=== PATIENT | female | born 1950 | race Hispanic/Latino ===

== ENCOUNTER 2018-01-24 06:05 | Inpatient (IN) | payer MEDICARE ==
[2018-01-21 09:40] LABS: BASOPHILS % 0.5 % (0.0-1.0); EOSINOPHILS # (AUTO) 0.5 (0.0-0.4); EOSINOPHILS % 8.2 % (0.0-6.0); HEMATOCRIT 40.4 % (34.2-44.1); HEMOGLOBIN 13.1 g/dL (12.0-16.0); LYMPHOCYTES # (AUTO) 1.8 (1.0-3.2); LYMPHOCYTES % 30.6 % (18.0-39.1); MEAN CORPUSCULAR HGB CONC 32.4 g/dL (31-35); MEAN CORPUSCULAR VOLUME 92.7 fL (81-99); MONOCYTES # (AUTO) 0.4 (0.2-0.8); MONOCYTES % 6.3 % (4.4-11.3); NEUTROPHILS # (AUTO) 3.2 (2.1-6.9); NEUTROPHILS % 54.2 % (38.7-80.0); PLATELET COUNT 192 x10e3/uL (140-360); RED BLOOD COUNT 4.36 x10e6/uL (3.6-5.1); RED CELL DISTRIBUTION WIDTH 13.2 % (11.7-14.4)
[2018-01-21 10:05] LABS: ANION GAP 14.1 mmol/L (8-16); BLOOD UREA NITROGEN 13 mg/dL (7-26); BUN/CREATININE RATIO 15 (6-25); CALCIUM 10.1 mg/dL (8.4-10.2); CARBON DIOXIDE 26 mmol/L (22-29); CHLORIDE 105 mmol/L (98-107); CREATININE, SERUM 0.89 mg/dL (0.57-1.11); EST GLOMERULAR FILTRATION RATE > 60 ML/MIN (60-); GLUCOSE 106 mg/dL (74-118); POTASSIUM 4.1 mmol/L (3.5-5.1); SODIUM 141 mmol/L (136-145)
--- NOTE | 2018-01-21 10:29 | Diagnostic Imaging Report ---
PROCEDURE: Frontal and lateral views of the chest. COMPARISON: Chest radiograph 10/05/12. INDICATIONS: PRE-OPERATIVE CHEST X-RAY FOR RIGHT KNEE SURGERY FINDINGS: Lines/tubes: None. Lungs: Moderate lung volumes. There is no evidence of pneumonia or pulmonary edema. Pleura: There is no pleural effusion or pneumothorax. Heart and mediastinum: The cardiomediastinal silhouette is unremarkable. Atherosclerotic calcifications of the aortic arch. Bones: No acute bony abnormality. IMPRESSION: No acute cardiopulmonary disease. Dictated by: ALVIN SANTOYO M.D. on 01/21/2018 at 10:36 Electronically approved by: ALVIN SANTOYO M.D. on 01/21/2018 at 10:36
[~2018-01-24] VITALS: Ht 154.9 cm; Wt 82.6 kg
[~2018-01-24 06:05] MED LIST: AMLODIPINE BESYL5 MG PO; CALCIUM 500 +1 EAC2 PO; EXFORGE HCT 5-1 EACH PO; FENOFIBRATE145 MG PO; HYDROCHLOROTHIA25 MG PO; LOSARTAN POTAS100 MG PO; LOSARTAN-HCTZ1 EAC1 PO; SIMVASTATIN40 MG PO; VITAMIN D35000 UNIT PO
[2018-01-24] MEDS ORDERED: ROPIVACAINE 246.25 MG, EPINEPHRINE HCL 1:1000 0.5 MG, CLONIDINE HCL 0.08 MG, KETOROLAC ... IV ONE ×5 (06:30)
[2018-01-24] MEDS ORDERED: MUPIROCIN 2% OINT 22 GM TUBE ONE (06:51)
[2018-01-24] MEDS ORDERED: TRANEXAMIC ACID 1,000 MG/10 ML ML ONE (06:52)
[2018-01-24] MEDS ORDERED: BACITRACIN 50,000 UNIT VIAL ONE (06:52)
[2018-01-24] MEDS ORDERED: DEXAMETHASONE SOD PHOS 10 MG/1 ML VIAL ONE (07:09)
[2018-01-24] MEDS ORDERED: CELECOXIB 200 MG CAP ONE (07:09)
[2018-01-24] MEDS ORDERED: GABAPENTIN 300 MG CAP ONE (07:10)
[2018-01-24] MEDS ORDERED: CEFAZOLIN SOD 2 GM/D5W 50ML 50 ML IV ONE (07:10)
[2018-01-24] MEDS: SODIUM CHLORIDE 0.9% 1000ML 1,000 ML IV SCH ×2 (09:50→17:57)
[2018-01-24] MEDS ORDERED: DOCUSATE SODIUM 100 MG CAP PO PRN (10:00)
[2018-01-24] MEDS ORDERED: ZOLPIDEM TARTRATE 5 MG TAB PO PRN (10:00)
[2018-01-24] MEDS ORDERED: PROMETHAZINE HCL (IM) 25 MG/ML VIAL INJ PRN (10:00)
[2018-01-24] MEDS ORDERED: ACETAMINOPHEN 650 MG SUPP PR PRN (10:00)
[2018-01-24] MEDS ORDERED: DIPHENHYDRAMINE HCL INJ 50 MG/ML VIAL IM/IV PRN (10:00)
[2018-01-24] MEDS ORDERED: ONDANSETRON HCL INJ 2 MG/ML VIAL IV PRN (10:00)
[2018-01-24] MEDS ORDERED: HYDROCODONE/APAP 7.5MG-325MG 1 EA TAB PO PRN (10:00)
[2018-01-24] MEDS ORDERED: KETOROLAC TROMETHAMINE 30 MG/ML VIAL IV PRN (10:00)
[2018-01-24] MEDS ORDERED: HYDROCODONE/APAP 5MG-325MG TAB PO PRN (10:00)
--- NOTE | 2018-01-24 11:29 | Diagnostic Imaging Report ---
PROCEDURE: X-RAY RIGHT KNEE, ONE OR TWO VIEWS COMPARISON: None. INDICATIONS:POST OPERATIVE RIGHT KNEE SURGERY FINDINGS: See conclusion. CONCLUSION: Status post total right knee replacement with surrounding soft tissue swelling, air and omeag consistent with recent surgery. No acute fractures. Dictated by: Aron Pinto M.D. on 01/24/2018 at 11:35 Electronically approved by: Aron Pinto M.D. on 01/24/2018 at 11:35
--- NOTE | 2018-01-24 11:38 | Operative Report ---
DATE OF PROCEDURE: January 24, 2018 CHIEF BUSINESS DEVELOPMENT OFFICER: Kris Simmons PA-C The patient was brought to the operating room for induction of anesthesia. Throughout this case, my PA's assistance was necessary for retraction of soft tissue and positioning of the extremity. This allows for efficient and technically successful execution of the operation and is considered medically necessary. PREOPERATIVE DIAGNOSIS: Osteoarthritis, right knee. POSTOPERATIVE DIAGNOSIS: Osteoarthritis, right knee. PROCEDURE: Right total knee arthroplasty. INDICATIONS: The patient is a 68-year-old woman with longstanding osteoarthritis of her right knee. She has failed extensive conservative management. She complains of disabling symptoms and would like to proceed with a right total knee replacement. The risks and benefits of the procedure have been discussed. She states she understands and wishes to proceed. DESCRIPTION OF PROCEDURE: The patient was brought to the operating room and placed under general anesthetic. She received a regional block, prophylactic antibiotics, and tranexamic acid in the holding area. Her right lower extremity was prepped and draped in a sterile manner. A preoperative time out was performed. The extremity was exsanguinated and the proximal tourniquet was inflated to 300 mmHg. An anterior approach with a medial parapatellar arthrotomy was performed. Soft tissue releases were performed to bring the knee up into flexion with the patella everted. The cruciate ligaments were sacrificed. The meniscal remnants and marginal osteophytes were removed. A Montalvo and Nephew Cassie II posterior-stabilized knee system was used throughout the case. An extramedullary cutting guide was used to resect the proximal tibia. The tibial baseplate was noted to be a size #4. The central fin punch was impacted and attention was directed towards the distal femur. An intramedullary cutting guide was used to resect the distal femur in 6 degrees of valgus and rotation referencing off of a combination of landmarks including Fuad's line, the epicondylar axis, and the posterior condyles. The femoral component was a size #5. The anterior and posterior cuts were made. Trial reductions were performed. A 9-mm ultra-congruent tibial insert provided appropriate soft tissue balancing in both flexion and extension. The patella was resurfaced with a 29 mm x 7.5 mm patellar button. The thickness was checked before and after and was right around 22 mm. Patellar tracking was noted to be concentric. The trial implants were then all removed. A 100 mL premixed pericapsular injection was placed into the surrounding soft tissue. The knee was thoroughly irrigated with the shower-tip pulsatile lavage. The components were cemented into place using a single mix of PALACOS cement preloaded with antibiotics. Care was taken to remove extravasated cement. The wound was further irrigated while the cement cured. The arthrotomy was then closed with interrupted #1 Ethibond. The knee was put through flexion and extension to ensure a secure closure. The skin was closed with subcuticular Vicryl and omega. A sterile Aquacel bandage was applied. The patient was extubated and transported to the recovery room in stable condition. Blood loss was minimal. All needle and sponge counts were correct. Job#: [id number] MAE
[2018-01-24] MEDS: ACETAMINOPHEN 1000 MG/100 ML IV SCH ×2 (12:00→17:40)
[2018-01-24] MEDS ORDERED: CEFAZOLIN SOD 1 GM/D5W 50ML 50 ML IV SCH (14:00)
[2018-01-24 15:10] VITALS: BP 131/60
[2018-01-24 15:11] VITALS: BP 131/60
[2018-01-24] MEDS ORDERED: ACETAMINOPHEN 1000 MG/100 ML IV ONE (15:29)
[2018-01-24] MEDS ORDERED: PROPOFOL IV EMULSION 10 MG/ML 20 ML VIAL ONE (15:29)
[2018-01-24] MEDS ORDERED: SEVOFLURANE INHAL SOLN 250 ML PEN BTL ONE (15:29)
[2018-01-24] MEDS ORDERED: LIDOCAINE HCL 2% LOCAL INJ 5 ML SDV VIAL INJ ONE (15:29)
[2018-01-24] MEDS ORDERED: DEXAMETHASONE SOD PHOS INJ 4 MG/ML VIAL ONE (15:29)
[2018-01-24] MEDS ORDERED: ONDANSETRON HCL INJ 2 MG/ML VIAL ONE (15:29)
[2018-01-24] MEDS ORDERED: CELECOXIB 100 MG CAP PO SCH (17:00)
[2018-01-24 17:16] VITALS: BP 121/57
[2018-01-24] MEDS: CEFAZOLIN SOD 1 GM VIAL IV SCH (17:30)
[2018-01-24] MEDS: ASPIRIN 325 MG TAB PO SCH (17:30)
[2018-01-24] MEDS: CELECOXIB 200 MG CAP PO SCH (17:30)
[2018-01-24] MEDS ORDERED: LIDOCAINE 2% /EPINEPHRINE 20 ML SDV INJ ONE (19:20)
[2018-01-24] MEDS ORDERED: ROPIVACAINE 0.5% 5 MG/ML 30 ML SDV ONE (19:20)
[2018-01-24] MEDS ORDERED: FENTANYL CITRATE/PF 100MCG/2 ML INJ ONE (19:52)
[2018-01-24] MEDS ORDERED: MIDAZOLAM HCL 2 MG/2 ML VIAL ONE (19:52)
[2018-01-24 20:00] VITALS: BP 115/56
--- NOTE | 2018-01-24 22:44 | Consultation ---
DATE OF CONSULTATION: January 24, 2018 REASON FOR CONSULTATION: Postoperative medical management. HISTORY OF PRESENT ILLNESS: A 68-year-old female patient with history of osteoarthritis of the right knee who is presently status post total knee arthroplasty with good pain control postoperatively. PAST MEDICAL HISTORY: Significant for hypertension, osteoarthritis, vitamin D deficiency, hypercholesterolemia. PAST SURGICAL HISTORY: Previous cholecystectomy, hernia repair with mesh, lumpectomy of the right breast. MEDICATIONS: The patient takes amlodipine 5 mg p.o. daily, meloxicam 15 mg p.o. daily, vitamin D 5000 international units daily, simvastatin 20 mg p.o. daily, fenofibrate 48 mg p.o. daily, losartan hydrochlorothiazide 100 per 25 mg p.o. daily. ALLERGIES: NO KNOWN DRUG ALLERGIES. SOCIAL HISTORY: The patient drinks 1 to 2 cups of caffeinated beverages a day. FAMILY HISTORY: Noncontributory. REVIEW OF SYSTEMS CONSTITUTIONAL: No fever or chills. HEENT: No increased jugular venous pressure. CARDIORESPIRATORY: No chest pain or shortness of breath. GASTROINTESTINAL: No nausea or vomiting. PHYSICAL EXAMINATION VITALS: At the time of this consultation, the patient's temperature is 96.0, pulse 82, respirations 16, blood pressure 121/57. GENERAL: The patient is alert, in no acute distress. SKIN: Warm and dry. NECK: No JVD. No bruit. CHEST: Heart is regular. Lungs clear. ABDOMEN: Obese, soft, nontender. EXTREMITIES: Right knee is stressed with ice packs. SCDs were in place. Good capillary filling. ASSESSMENT 1. Osteoarthritis of the knee, status post right total knee arthroplasty. 2. Hypertension. 3. Hypercholesterolemia. 4. Obesity. PLAN AND RECOMMENDATIONS: The patient will continue with her management of hypertension and hyperlipidemia as prior to admission. Continue with postoperative care, DVT prophylaxis, pain management and ambulation with PT. Job#: [id number] KYLE
[2018-01-24 22:49] VITALS: BP 115/56
[2018-01-25] VITALS: BP 121/57
[2018-01-25] MEDS: ACETAMINOPHEN 1000 MG/100 ML IV SCH ×3 (00:02→05:41)
[2018-01-25] MEDS: CEFAZOLIN SOD 1 GM VIAL IV SCH ×2 (00:02→09:53)
[2018-01-25] MEDS: SODIUM CHLORIDE 0.9% 1000ML 1,000 ML IV SCH (05:04)
[2018-01-25 05:50] LABS: HEMATOCRIT 32.3 % (34.2-44.1); HEMOGLOBIN 10.5 g/dL (12.0-16.0)
[2018-01-25 06:00] VITALS: BP 125/60
[2018-01-25 08:00] VITALS: BP 137/64
[2018-01-25] MEDS: ASPIRIN 325 MG TAB PO SCH (09:53)
[2018-01-25] MEDS: CELECOXIB 200 MG CAP PO SCH ×2 (09:53→15:30)
[2018-01-25] MEDS ORDERED: ACETAMINOPHEN 1000 MG/100 ML IV PRN (10:00)
[2018-01-25] MEDS ORDERED: ASPIRIN325 MG PO (12:19)
[2018-01-25 13:50] VITALS: BP 185/78
== END 2018-01-25 15:31 | disposition home health service (06) | DRG 470 ==
LOC: OR 06:05 → PACU V 09:54 → MED/SURG 14:09
PROVIDERS: ADMIT Specialist; ATTEND Specialist
PROC: 0SRC0J9 Replacement of Right Knee Joint with Synthetic Substitute, Cemented, Open Approach (ICD-10-PCS; principal; 2018-01-24 08:15)
DX: M17.0 Bilateral primary osteoarthritis of knee (principal); I10 Essential (primary) hypertension; E78.00 Pure hypercholesterolemia, unspecified; E55.9 Vitamin D deficiency, unspecified; E66.9 Obesity, unspecified; Z68.34 Body mass index [BMI] 34.0-34.9, adult
CPT/HCPCS: 36415; 71046; 80048; 85014; 85018; 85025; 86850; 86900; 86920; 93005; C1713; J0171; J0690; J1100; J1885; J2001; J2250; J2405; J2795; J7030

== ENCOUNTER 2018-09-26 07:27 | Observation (INO) | payer MEDICARE ==
[2018-09-23 10:56] LABS: BASOPHILS % 0.7 % (0.0-1.0); EOSINOPHILS # (AUTO) 0.4 (0.0-0.4); EOSINOPHILS % 6.7 % (0.0-6.0); HEMATOCRIT 39.6 % (34.2-44.1); HEMOGLOBIN 12.9 g/dL (12.0-16.0); LYMPHOCYTES # (AUTO) 1.5 (1.0-3.2); LYMPHOCYTES % 27.2 % (18.0-39.1); MEAN CORPUSCULAR HEMOGLOBIN 29.5 pg (28-32); MEAN CORPUSCULAR HGB CONC 32.6 g/dL (31-35); MEAN CORPUSCULAR VOLUME 90.4 fL (81-99); MONOCYTES # (AUTO) 0.3 (0.2-0.8); MONOCYTES % 6.3 % (4.4-11.3); NEUTROPHILS # (AUTO) 3.2 (2.1-6.9); NEUTROPHILS % 58.7 % (38.7-80.0); PLATELET COUNT 182 x10e3/uL (140-360); RED BLOOD COUNT 4.38 x10e6/uL (3.6-5.1); RED CELL DISTRIBUTION WIDTH 13.6 % (11.7-14.4)
--- NOTE | 2018-09-23 13:22 | Diagnostic Imaging Report ---
EXAM: CHEST 2 VIEWS, PA and lateral DATE: 09/23/2018 Time stamp on exam: 10:38 AM INDICATION: Preoperative COMPARISON: None FINDINGS: LINES/TUBES: None LUNGS: No consolidations or edema. PLEURA: No effusions or pneumothorax. HEART AND MEDIASTINUM: Normal size and contour. Calcification within the aorta. BONES AND SOFT TISSUES: No acute findings. IMPRESSION: No acute thoracic abnormality. Signed by: Dr. Sameer Pennington DO on 09/23/2018 1:18 PM
[~2018-09-26 07:27] MED LIST changes: +ASPIRIN325 MG PO; +BACITRACIN 50,000 UNIT VIAL ONE; +IRBESARTAN-HCT1 EAC1 PO; +ROPIVACAINE 246.25 MG, EPINEPHRINE HCL 1:1000 1ML 0.5 MG, CLONIDINE HCL 0.08 MG, KETORO... INJ ONE; +SODIUM CHLORIDE 0.9% 500ML 500 ML ONE; +TRANEXAMIC ACID 1,000 MG/10 ML ML ONE
[2018-09-26] MEDS ORDERED: CELECOXIB 200 MG CAP ONE (07:52)
[2018-09-26] MEDS ORDERED: DEXAMETHASONE SOD PHOS 10 MG/1 ML VIAL ONE (07:52)
[2018-09-26] MEDS ORDERED: GABAPENTIN 300 MG CAP ONE (07:52)
[2018-09-26] MEDS ORDERED: CEFAZOLIN SOD 2 GM/D5W 50ML 50 ML IV ONE (07:52)
[2018-09-26] MEDS ORDERED: VANCOMYCIN HCL 1,000 MG ONE (08:07)
[2018-09-26] MEDS ORDERED: PROMETHAZINE HCL (IM) 25 MG/ML VIAL INJ PRN (10:45)
[2018-09-26] MEDS ORDERED: KETOROLAC TROMETHAMINE 30 MG/ML VIAL IV PRN (10:45)
[2018-09-26] MEDS ORDERED: DIPHENHYDRAMINE HCL INJ 50 MG/ML VIAL IM/IV PRN (10:45)
[2018-09-26] MEDS ORDERED: ONDANSETRON HCL INJ 2MG/ML 2ML 2 MG/ML VIAL IV PRN (10:45)
[2018-09-26] MEDS ORDERED: DOCUSATE SODIUM 100 MG CAP PO PRN (10:45)
[2018-09-26] MEDS ORDERED: ACETAMINOPHEN 650 MG SUPP PR PRN (10:45)
[2018-09-26] MEDS ORDERED: HYDROCODONE/APAP 7.5MG-325MG 1 EA TAB PO PRN (10:45)
[2018-09-26] MEDS ORDERED: ZOLPIDEM TARTRATE 5 MG TAB PO PRN (10:45)
[2018-09-26] MEDS ORDERED: HYDROCODONE/APAP 5MG-325MG TAB PO PRN (10:45)
[2018-09-26] MEDS ORDERED: HYDROMORPHONE 2MG/ML 2 MG/ML ML ONE (11:08)
--- NOTE | 2018-09-26 11:45 | NUR ---
RECEIVED PATIENT FROM RECOVERY. PATIENT A/O X3, EVEN RESPIRATIONS UNLABORED ON 2LNC. PATIENT HAD A LEFT TOTAL KNEE. LEFT KNEE DRESSING CLEAN, DRY, AND INTACT. ICE PACK IN PLACE. MCKEE DRAINING CLEAR YELLOW URINE. RIGHT WRIST 20 GAUGE IV WITH NS @ 100 CC/HR. PATIENT AMBULATORY WITH ASSISTANCE. VITALS STABLE, NO SIGNS OF DISTRESS. CALL LIGHT IN REACH, BED LOW, WHEELS LOCKED, SIDE RAILS X2. WILL CONTINUE TO MONITOR PATIENT.
[2018-09-26] MEDS ORDERED: ACETAMINOPHEN 1000 MG/100 ML IV SCH (12:00)
--- NOTE | 2018-09-26 12:06 | Diagnostic Imaging Report ---
EXAM: KNEE LEFT 1-2 VIEWS DATE: 09/26/2018 10:37 AM INDICATION:Postop knee COMPARISON: None FINDINGS: 2 views of the left knee shows arthroplasty hardware. Hardware appears intact. There are skin omega anterior to the knee and there is air in the underlying soft tissue and intra-articular space compatible with recent surgery. No other acute bony abnormality. IMPRESSION: Postoperative left knee with intact appearing arthroplasty hardware. Signed by: Dr. Andrey Schmidt M.D. on 09/26/2018 12:03 PM
[2018-09-26] MEDS: ACETAMINOPHEN 1000 MG/100 ML 100 ML IV SCH ×2 (12:41→19:22)
[2018-09-26] MEDS: SODIUM CHLORIDE 0.9% 1000ML 1,000 ML IV SCH ×2 (12:41→20:37)
[2018-09-26 12:54] VITALS: BP 132/61
[2018-09-26 13:17] VITALS: BP 132/61
[2018-09-26 13:48] VITALS: BP 132/61
[2018-09-26] MEDS: CEFAZOLIN SOD 1 GM/NS 50ML 50 ML IV SCH ×2 (14:34→22:06)
[2018-09-26 15:42] VITALS: BP 128/65
[2018-09-26] MEDS: ASPIRIN 325 MG TAB PO SCH (17:17)
[2018-09-26] MEDS: CELECOXIB 100 MG CAP PO SCH (17:17)
[2018-09-26] MEDS ORDERED: DEXAMETHASONE SOD PHOS INJ 4 MG/ML VIAL ONE (17:52)
[2018-09-26] MEDS ORDERED: ONDANSETRON HCL INJ 2MG/ML 2ML 2 MG/ML VIAL ONE (17:52)
[2018-09-26] MEDS ORDERED: ACETAMINOPHEN 1000 MG/100 ML IV ONE (17:52)
[2018-09-26] MEDS ORDERED: SEVOFLURANE INHAL SOLN 250 ML PEN BTL ONE (17:52)
[2018-09-26] MEDS ORDERED: LIDOCAINE HCL 2% LOCAL INJ 5 ML SDV VIAL INJ ONE (17:52)
[2018-09-26] MEDS ORDERED: PROPOFOL IV EMULSION 10 MG/ML 20 ML VIAL ONE (17:52)
[2018-09-26] MEDS ORDERED: BUPIVACAINE 0.25% 30ML SDV INJ ONE (19:18)
[2018-09-26] MEDS ORDERED: EPINEPHRINE HCL 1:1000 1ML 1 MG/ML AMP ONE (19:18)
[2018-09-26] MEDS ORDERED: FENTANYL CITRATE/PF 100MCG/2 ML INJ ONE ×2 (19:47→19:49)
[2018-09-26] MEDS ORDERED: MIDAZOLAM HCL 2 MG/2 ML VIAL ONE (19:47)
[2018-09-26 20:00] VITALS: BP 133/63
--- NOTE | 2018-09-26 20:05 | Operative Report ---
DATE OF PROCEDURE: 09/26/2018 SURGEON: Joey Arango MD GREY STOCK RECORDER: Tesfaye Noel. PREOPERATIVE DIAGNOSIS: Osteoarthritis, left knee. POSTOPERATIVE DIAGNOSIS: Osteoarthritis, left knee. PROCEDURE: Left total knee arthroplasty. INDICATIONS: The patient is a 68-year-old lady, who is status post right total knee replacement about 6 months ago. She would now like to have her left knee replaced. The risks and benefits of the procedure have been discussed. She states she understands and wishes to proceed. DESCRIPTION OF PROCEDURE: The patient was brought to the operating room and placed under general anesthetic. She received a regional block, prophylactic antibiotics, and tranexamic acid in the holding area. Her left lower extremity was prepped and draped in a sterile manner. A preoperative time-out was performed. The extremity was exsanguinated and a proximal tourniquet was inflated to 300 mmHg. An anterior approach with a medial parapatellar arthrotomy was made to the left knee. Clear synovial fluid was removed from the joint. Soft tissue releases were performed to bring the knee up into flexion with the patella everted. The remnant of the anterior cruciate ligament was sacrificed. Meniscal remnants and marginal osteophytes were removed. An extramedullary cutting guide was used to resect the proximal tibia. The tibial base plate was a size #4. The central fin punch was impacted and attention was directed towards the distal femur. Throughout the case, a Marro.ws and DeNA knee system was used. An intramedullary cutting guide was used to resect the distal femur in 6 degrees of valgus and rotation referencing off a combination of landmarks including Whitesides line, the epicondylar axis and the posterior condyles. The femoral component was a size #5. The anterior and posterior cuts were made. Trial reductions were performed. A 9 mm tibial insert was chosen. The patella was then resurfaced with a 29 mm x 7.5 mm patellar button. The thickness was checked before and after and it was right at 23 mm. Patellar tracking was concentric. The trial implants were removed. The knee was thoroughly irrigated with a shower tip pulsatile lavage. Throughout the case as well, anytime cuts were made. A lubricating mixture of polymyxin and vancomycin spray were used. A 100 mL premixed pericapsular TONY injection was placed into the surrounding soft tissue. The components were cemented into place using a single mix of high viscosity Simplex cement preloaded with antibiotics. Care was taken to remove extravasated cement. The wound was further irrigated while the cement cured. The arthrotomy was carefully closed with interrupted #1 Ethibond. The skin was closed with subcuticular Vicryl and omega. A sterile bandage was applied. The patient was extubated and transported to the recovery room in stable condition. Blood loss was minimal. All needle and sponge counts were correct. Joey Arango MD DR/GIBSON /[id number]
[2018-09-26] MEDS: SIMVASTATIN 20 MG TAB PO SCH (20:31)
[2018-09-26] MEDS ORDERED: FENOFIBRATE 48 MG TAB PO SCH (21:00)
[2018-09-26 21:33] VITALS: BP 133/63
[2018-09-27] VITALS: BP 130/60
[2018-09-27] MEDS: ACETAMINOPHEN 1000 MG/100 ML 100 ML IV SCH ×2 (00:01→05:57)
[2018-09-27 04:00] VITALS: BP 115/57
[2018-09-27] MEDS: CEFAZOLIN SOD 1 GM/NS 50ML 50 ML IV SCH (05:22)
--- NOTE | 2018-09-27 05:44 | NUR ---
Potter catheter removed. CPM started at 60
[2018-09-27 07:10] LABS: HEMATOCRIT 31.3 % (34.2-44.1); HEMOGLOBIN 10.1 g/dL (12.0-16.0)
--- NOTE | 2018-09-27 07:35 | NUR ---
RECEIVED PATIENT AWAKE IN BED CPM AT 60. BED LOW, WHEELS LOCKED, SIDE RAILS X2, CALL LIGHT IN REACH. NO SIGNS OF DISTRESS AT THIS TIME. WILL CONTINUE TO MONITOR PATIENT.
--- NOTE | 2018-09-27 07:42 | NUR ---
TOOK PATIENT OFF CPM. ASSISTED PATIENT TO BEDPAN. PATIENT HAS VOIDED SINCE MCKEE REMOVAL.
[2018-09-27 08:26] VITALS: BP 132/60
[2018-09-27] MEDS: CELECOXIB 100 MG CAP PO SCH (08:35)
[2018-09-27] MEDS: ASPIRIN 325 MG TAB PO SCH (08:35)
[2018-09-27] MEDS: SIMVASTATIN 20 MG TAB PO SCH (08:35)
[2018-09-27] MEDS ORDERED: IRBESARTAN 150 MG TAB PO SCH (09:00)
[2018-09-27] MEDS ORDERED: HYDROCHLOROTHIAZIDE 25 MG TAB PO SCH (09:00)
[2018-09-27 09:51] VITALS: BP 132/60
--- NOTE | 2018-09-27 10:27 | Consultation ---
DATE OF CONSULTATION: REASON FOR CONSULTATION: Postop medical management. HISTORY OF PRESENT ILLNESS: This patient is a 68-year-old lady, status post left total knee arthroplasty, her incisions are clean postoperatively complains of minimal pain. Denies any chest pain, fever, chills, nausea, vomiting, headache, or shortness of breath or dizziness on review of systems. PAST MEDICAL HISTORY: Significant for hypertension and hyperlipidemia. PREVIOUS SURGERIES: Hernia repair, gallbladder. SOCIAL HISTORY: She is . Nondrinker and nonsmoker. FAMILY HISTORY: Diabetes and hypertension. CURRENT MEDICATIONS: Vitamins, losartan, hydrochlorothiazide, and amlodipine. ALLERGIES: UNKNOWN. PHYSICAL EXAMINATION: VITAL SIGNS: Temperature is 97.5, pulse 73, blood pressure 130/60, and sats 96% on room air. GENERAL: She is in no apparent distress, lying in bed. NECK: Supple. CARDIOVASCULAR: Regular rate and rhythm. LUNGS: Clear to auscultation bilaterally. ABDOMEN: Good bowel sounds. Soft and nontender. EXTREMITIES: No clubbing or cyanosis. NEUROLOGIC: Nonfocal. ASSESSMENT AND PLAN: 1. Left knee pain. We will continue physical therapy and pain control, but overall patient is doing well. 2. Anemia. Check a CBC. 3. Hypertension. Continue with her medications and monitoring blood pressure. 4. Hyperlipidemia. Continue with her medication. Please see hospital chart for full details. MD TAYLOR Lyon/GIBSON /[id number]
[2018-09-27] MEDS ORDERED: ACETAMINOPHEN 1000 MG/100 ML 100 ML IV PRN (10:45)
[2018-09-27] MEDS ORDERED: ACETAMINOPHEN 1000 MG/100 ML IV PRN (10:45)
[2018-09-27 12:47] VITALS: BP 121/58
--- NOTE | 2018-09-27 13:06 | NUR ---
CASE MANAGEMENT ASSESSMENT Agency Appointments Supervisor to bedside to discuss plan of care with patient/family. CM/SW role and care transitions discussed. Anticipated discharge plan discussed along with duration of care. CM/SW discussed patients right to make decisions in care. CM/SW work hours given. Patient lives: with her Admit/Transfer: from PACU Hospital/ER visits since last admit: 0 POA/Emergency contact: 1. son Jeffery Betancourt [phone], 2. Albert Betancourt [phone] (home), (cell) Current/Previous Home Health: none previously PCP/Follow-up Care: will follow up with Dr. Arango as instructed Current/Previous DME: [employer] provided to pt. CPM and 3-in-1 commode will be delivered by [employer]. CM called and spoke with Lizz. She stated everything has been approved and their hygiene coordinator will call pt and schedule delivery. Medications (referring to index hospitalization or the first time you were in the hospital) a. Were changes made in your medications when you were in the hospital on [date of index hospitalization]? n/a b. Did you understand the changes? n/a c. Were you able to obtain your new medications right away? n/a d. Were you able to take your medications like the doctor wanted you to? n/a e. Did the hospital give you an accurate, easy to understand list of medications when you left? n/a Scale of 1-10 how comfortable does patient feel with disease management in outpatient setting: Other Services: none Employment Status: retired Areas of Concerns: recent surgery Referral Needs: home health; orders were faxed from Dr. Arango's office to [facility]. Choice letter signed and placed in chart. Copy to pt. DOMENIC called and spoke to Luz at [facility]. Informed her that pt will be going to her sister's house at [id number] [place] [address], [place] [address]. Luz stated she will forward that information to the [place] office and they will be able to see pt tomorrow. Education Needs: post operative care IMM/MCCARTNEY given and signed (if applicable): MCCARTNEY; signed copy in chart. Copy given to pt. Goal for discharge: home with home health CM/SW left business card at the bedside with contact information. Name and number was also written on the patients whiteboard. Patient verbalized understanding of discussion. CM will follow-up with ongoing discharge and transition of care needs. Addendum: 09/27/18 at 1322 by Ila Blas Operative note and PT notes faxed to [facility] [employer] at [phone] / Home health information was given to pt.
[2018-09-27] MEDS ORDERED: NORCO 7.5-3251 EACH PO (14:11)
--- NOTE | 2018-09-27 14:30 | NUR ---
REMOVED PATIENTS IV. CATHETER TIP INTACT AND PRESSURE DRESSING APPLIED.
--- NOTE | 2018-09-27 14:37 | NUR ---
PATIENT DISCHARGED FROM FACILITY. PATIENT GATHERED ALL PERSONAL BELONGINGS, DISCHARGE INSTRUCTIONS/PRESCRIPTIONS AND FOLLOW UP INFORMATION. LEFT UNIT IN WHEELCHAIR AND WENT HOME VIA PRIVATE AUTO.
== END 2018-09-27 14:37 | disposition home health service (06) ==
LOC: OR 07:27 → PACU V 10:55 → MED/SURG 11:39
PROVIDERS: ADMIT Specialist; ATTEND Specialist
DX: M17.12 Unilateral primary osteoarthritis, left knee (principal); Z96.651 Presence of right artificial knee joint; I10 Essential (primary) hypertension; E78.00 Pure hypercholesterolemia, unspecified; Z90.49 Acquired absence of other specified parts of digestive tract; Z83.3 Family history of diabetes mellitus; Z82.49 Family history of ischemic heart disease and other diseases of the circulatory system; K44.9 Diaphragmatic hernia without obstruction or gangrene; D64.9 Anemia, unspecified
CPT/HCPCS: 27447; 36415 ×2; 71046; 73560; 85014; 85018; 85025; 86850; 86900; 86920; 93005; 97116 ×2; 97139; 97161; 97530; C1713 ×2; G0378 ×2; J0131 ×2; J0171; J0690 ×3; J1100 ×2; J1170; J1885 ×2; J2001; J2250; J2405; J2704; J2795; J3370; J7030; J7040